=== PATIENT | male | born 1960 | race Caucasian/White ===

== ENCOUNTER 2016-07-14 15:17 | Emergency (ER) | payer MEDICAID, OTHER ==
[2016-07-14 15:33] VITALS: BP 135/78
[2016-07-14] MEDS ORDERED: Lidocaine 1% 20 ML MDV INJECT ONE (15:43)
[2016-07-14] MEDS ORDERED: Diphtheria,Pertussis(Acell),Tetanus Vaccine 0.5 ML Syringe IM ONE (15:43)
--- NOTE | 2016-07-14 15:43 | EDM.PDOC ---
ED HPI GENERAL MEDICAL PROBLEM - General Chief Complaint: Upper Extremity Injury/Pain Stated Complaint: L HAND INJURY Time Seen by Provider: 07/14/16 15:41 - History of Present Illness INITIAL COMMENTS - FREE TEXT/NARRATIVE: HISTORY AND PHYSICAL: History of present illness: Patient 56-year-old male presents with concern of acute injury to the fourth digit of his right hand this occurred when patient was connecting some type this was a crush type injury per his Review of systems: As per history of present illness and below otherwise all systems reviewed and negative. Past medical history: As per history of present illness and as reviewed below otherwise noncontributory. Surgical history: As per history of present illness and as reviewed below otherwise noncontributory. Social history: No reported history of drug or alcohol abuse. Family history: As per history of present illness and as reviewed below otherwise noncontributory. Physical exam: HEENT: Atraumatic, normocephalic, pupils reactive, negative for conjunctival pallor or scleral icterus, mucous membranes moist, throat clear, neck supple, nontender, trachea midline. Lungs: Clear to auscultation, breath sounds equal bilaterally, chest nontender. Heart: S1S2, regular, negative for clicks, rubs, or JVD. Abdomen: Soft, nondistended, nontender. Negative for masses or hepatosplenomegaly. Negative for costovertebral tenderness. Pelvis: Stable nontender. Genitourinary: Deferred. Rectal: Deferred. Extremities: Fourth digit right hand with a laceration approximately 2 cm of tendon involvement CMS neurovascular is unremarkable Neuro: Awake, alert, oriented. Cranial nerves II through XII unremarkable. Cerebellum unremarkable. Motor and sensory unremarkable throughout. Exam nonfocal. Diagnostics: X-ray right hand Therapeutics: Patient was anesthetized 1% lidocaine irrigated with copious amounts 0.9 normal saline prepped and draped in sterile manner closed with 4-0 nylon suture tetanus 0.5 Td was given IM Impression: #1 acute injury right hand with laceration Definitive disposition and diagnosis as appropriate pending reevaluation and review of above. Right 4-Ring finger Pain Score (Numeric/FACES): 0 - Related Data Allergies Allergy/AdvReac Type Severity Reaction Status Date / Time No Known Allergies Allergy Verified 07/14/16 15:30 Home Meds: Home Meds Lisinopril/Hydrochlorothiazide [Lisinopril-Hctz 20-12.5 mg Tab] 1 tab PO DAILY 07/14/16 [History] Sertraline HCl 100 mg PO DAILY 07/14/16 [History] atorvaSTATin [Lipitor] 20 mg PO BEDTIME 07/14/16 [History] risperiDONE 4 mg PO DAILY 07/14/16 [History] Past Medical History HEENT History: Reports: None Cardiovascular History: Reports: High Cholesterol, Hypertension Respiratory History: Reports: None Gastrointestinal History: Reports: None Genitourinary History: Reports: None Musculoskeletal History: Reports: None Neurological History: Reports: None Psychiatric History: Reports: Bipolar Endocrine/Metabolic History: Reports: None Hematologic History: Reports: None Immunologic History: Reports: None Oncologic (Cancer) History: Reports: None Dermatologic History: Reports: None - Past Surgical History Head Surgeries/Procedures: Reports: None Social & Family History - Family History Family Medical History: Noncontributory - Tobacco Use Smoking Status *Q: Current Every Day Smoker Years of Tobacco use: 24 Packs/Tins Daily: 1 - Caffeine Use Caffeine Use: Reports: Coffee - Recreational Drug Use Recreational Drug Use: No Review of Systems - Review of Systems Review Of Systems: ROS reveals no pertinent complaints other than HPI. Trauma Exam - Physical Exam Exam: See Below (See dictation) Course - Vital Signs Last Recorded V/S: Last Vital Signs Temp 36.2 C 07/14/16 15:30 Pulse 116 H 07/14/16 15:30 Resp 20 07/14/16 15:30 BP 135/78 07/14/16 15:30 Pulse Ox 95 07/14/16 15:30 - Orders/Labs/Meds Orders: Active Orders 24 hr Category Date Time Status Hand 2V Rt [CR] Stat Exams 07/14/16 15:41 Ordered Departure - Departure Time of Disposition: 15:43 Disposition: Home, Self-Care 01 Condition: good Clinical Impression: Hand injury - Discharge Information Forms: ED Department Discharge - My Orders Last 24 Hours: My Active Orders 07/14/16 15:41 Hand 2V Rt [CR] Stat - Assessment/Plan Last 24 Hours: My Active Orders 07/14/16 15:41 Hand 2V Rt [CR] Stat
--- NOTE | 2016-07-18 09:57 | CR ---
EXAM DATE: 07/14/16 PATIENT'S AGE: 56 Patient: CY YANG Facility: [place], [place] Site . Site : [id number] Study: XRay Extremity hand [id number] 3:55:08 PM Ordering Physician: Adin Haskins Final Report: INDICATION: crushing injury RIGHT HAND No fracture, dislocation, or destructive lesion of bone is seen. No significant arthritic changes or soft tissue abnormalities are identified. IMPRESSION: Negative right hand radiographs. MILAGRO OJYCE MD [facility] Dictated by: Madhu Joyce MD @ 07/14/2016 16:08:32 (Electronic Signature) Report Signed by Proxy. [facility]INICKeyana
== END 2016-07-14 16:38 | disposition home or self-care (01) ==
LOC: MW.ED 15:17
DX: S61.214A Laceration without foreign body of right ring finger without damage to nail, initial encounter (principal); I10 Essential (primary) hypertension; F17.210 Nicotine dependence, cigarettes, uncomplicated; E78.00 Pure hypercholesterolemia, unspecified; Z79.899 Other long term (current) drug therapy; Z23 Encounter for immunization; X58.XXXA Exposure to other specified factors, initial encounter
CPT/HCPCS: 12001; 73120-26-RT; 73120-RT; 90471; 90715; 99282; 99283-25

== ENCOUNTER 2016-07-28 09:33 | Emergency (ER) | payer MEDICAID, OTHER ==
[2016-07-28 10:18] VITALS: BP 141/70
== END 2016-07-28 10:18 | disposition left against medical advice (07) ==
LOC: MW.ED 09:33
DX: S61.214D Laceration without foreign body of right ring finger without damage to nail, subsequent encounter (principal); X58.XXXD Exposure to other specified factors, subsequent encounter